=== PATIENT | male | born 1995 | race African-American/Black ===

== ENCOUNTER 2017-09-22 17:00 | Emergency (ER) | payer SELFPAY ==
[2017-09-22] MEDS ORDERED: Ondansetron ODT 4 MG TAB ONE (17:12)
[2017-09-22] MEDS ORDERED: Ondansetron HCl/PF 4 MG/2 ML Vial ONE (17:25)
[2017-09-22] MEDS ORDERED: Famotidine In NaCl 20 mg/50 ml Premix Bag ONE (17:25)
[2017-09-22 17:34] LABS: #Basophils 0.1 thou/uL (0.0-0.2); #Eosinphils 0.2 thou/uL (0.0-0.7); #Lymphocytes 2.5 thou/uL (1.20-3.40); #Monocytes 0.4 thou/uL (0.11-0.59); #Neutrophils 4.3 thou/uL (1.40-6.50); %Basophils 1.3 % (0.0-1.0); %Eosinophils 3.2 % (0.0-10.0); %Monocytes 4.7 % (0.0-10.0); %Neutrophils 56.9 % (42.0-75.0); Mean Corpuscular HGB CONC 31.6 g/dL (32.0-36.0); Mean Corpuscular Hemoglobin 25.8 pg (27.0-31.0); Mean Corpuscular Volume 81.5 fl (80.0-94.0); Mean Platelet Volume 6.8 fL (7.4-10.4); Platelet Count 239 thou/uL (130-400); RBC Distribution Width 11.9 % (11.5-14.5); Red Blood Cell (RBC) Count 5.82 mill/uL (4.70-6.10); White Blood Cell (WBC) Count 7.5 thou/uL (4.8-10.8)
[2017-09-22 17:49] LABS: ALT (SGPT) 23 U/L (8-55); AST (SGOT) 22 U/L (5-34); Albumin 4.8 g/dL (3.5-5.0); Alkaline Phosphatase 123 U/L (40-150); BUN (Urea Nitrogen) 16 mg/dL (8.9-20.6); Bilirubin, Total 0.3 mg/dL (0.2-1.2); Calc. Creatinine Clearance 0 mL/min (70-130); Calcium 10.7 mg/dL (7.8-10.44); Carbon Dioxide 27 mmol/L (22-29); Estimated GFR-MDRD 78; Globulin 4.3 g/dL (2.4-3.5); Glucose 524 mg/dL (70-105); Lipase 24 U/L (8-78); Protein, Total 9.1 g/dL (6.0-8.3)
[2017-09-22 17:51] LABS: Clarity Clear (Clear)
[2017-09-22 17:52] LABS: Leukocyte Negative (Negative); Nitrite Negative (Negative); Protein, Urine (Dipstick) Negative (Neg-Trace)
[2017-09-22 17:53] LABS: Bilirubin Negative (Negative); Blood, Urine Small (Negative); Glucose, Urine (Dipstick) >=1000 mg/dL (Negative); Urobilinogen 0.2 mg/dL (0.2-1.0)
[2017-09-22 17:54] LABS: RBC/HPF 0-3 HPF (0-3); Squamous Epithelial 0-3 HPF (0-3); WBC/HPF 0-3 HPF (0-3)
[2017-09-22 17:55] LABS: Bacteria/HPF Rare-Few HPF (None Seen)
[2017-09-22] MEDS ORDERED: Insulin Regular 300 UNITS/3 ML VIAL ONE (17:59)
[2017-09-22 18:04] LABS: Specific Gravity, Urine 1.032 (1.005-1.030)
[2017-09-22 20:14] LABS: Chloride 97 mmol/L (98-107); Potassium 4.1 mmol/L (3.5-5.1); Sodium 136 mmol/L (136-145)
[2017-09-22 20:27] LABS: Anion Gap 16 mmol/L (10-20)
== END 2017-09-22 19:30 | disposition home or self-care (01) ==
LOC: BURERS 17:00
DX: E11.65 Type 2 diabetes mellitus with hyperglycemia (principal); R11.2 Nausea with vomiting, unspecified; J45.909 Unspecified asthma, uncomplicated; F31.9 Bipolar disorder, unspecified; F41.9 Anxiety disorder, unspecified; F17.210 Nicotine dependence, cigarettes, uncomplicated; Z79.4 Long term (current) use of insulin
CPT/HCPCS: 36416; 80053; 81003; 81015; 83690; 85025; 94760; 96365; 96375; J1815; J2405; Q0162

== ENCOUNTER 2017-09-22 22:05 | Emergency (ER) | payer SELFPAY ==
[2017-09-22] MEDS ORDERED: Ondansetron HCl/PF 4 MG/2 ML Vial ONE (22:21)
[2017-09-22 22:50] LABS: Anion Gap 15 mmol/L (10-20)
[2017-09-22 22:59] LABS: BUN (Urea Nitrogen) 14 mg/dL (8.9-20.6); Calc. Creatinine Clearance 0 mL/min (70-130); Calcium 8.8 mg/dL (7.8-10.44); Carbon Dioxide 23 mmol/L (22-29); Chloride 106 mmol/L (98-107); Estimated GFR-MDRD Greater than 90; Glucose 218 mg/dL (70-105); Potassium 3.5 mmol/L (3.5-5.1); Sodium 140 mmol/L (136-145)
[2017-09-22 23:40] LABS: Clarity Clear (Clear); Glucose, Urine (Dipstick) 500 mg/dL (Negative); Leukocyte Negative (Negative); Nitrite Negative (Negative); Protein, Urine (Dipstick) Negative (Neg-Trace); pH, Urine 5.5 (5.0-9.0)
[2017-09-22 23:41] LABS: Bilirubin Negative (Negative); Blood, Urine Small (Negative); Urobilinogen 0.2 mg/dL (0.2-1.0)
[2017-09-22 23:50] LABS: Amphetamine Not Detected (NotDetected); Cocaine Metabolite Screen Not Detected (NotDetected); Methamphetamine Not Detected (NotDetected); Opiate Screen Not Detected (NotDetected); Phencyclidine (PCP) Not Detected (NotDetected); THC/Cannabinoid Screen Detected (NotDetected)
[2017-09-22 23:51] LABS: Barbiturates Screen Not Detected (NotDetected); Benzodiazepine Screen Not Detected (NotDetected); Medtox Control Line Valid? VALID (VALID); Methadone Not Detected (NotDetected); Oxycodone Screen Not Detected (NotDetected); Tricyclic Screen Not Detected (NotDetected)
== END 2017-09-23 00:24 | disposition short-term general hospital (02) ==
LOC: BURERS 22:05
DX: E11.65 Type 2 diabetes mellitus with hyperglycemia (principal); I10 Essential (primary) hypertension; J45.909 Unspecified asthma, uncomplicated; F41.9 Anxiety disorder, unspecified; F31.9 Bipolar disorder, unspecified; F90.9 Attention-deficit hyperactivity disorder, unspecified type; F12.10 Cannabis abuse, uncomplicated; Z79.4 Long term (current) use of insulin; F17.210 Nicotine dependence, cigarettes, uncomplicated
CPT/HCPCS: 80306; 96361; 96374; 96375; J2405

== ENCOUNTER 2017-09-23 11:40 | Emergency (ER) | payer SELFPAY ==
[2017-09-23] MEDS ORDERED: diphenhydrAMINE 50 MG/ML VIAL ONE (12:06)
[2017-09-23] MEDS ORDERED: Haloperidol Lactate 5 MG/ML VIAL ONE (12:06)
[2017-09-23 12:15] LABS: Hemoglobin 14.3 g/dL (14.0-18.0); Red Blood Cell (RBC) Count 5.28 mill/uL (4.70-6.10); White Blood Cell (WBC) Count 13.3 thou/uL (4.8-10.8)
[2017-09-23 12:16] LABS: #Basophils 0.1 thou/uL (0.0-0.2); #Lymphocytes 1.5 thou/uL (1.20-3.40); #Monocytes 0.3 thou/uL (0.11-0.59); #Neutrophils 11.4 thou/uL (1.40-6.50); %Basophils 0.9 % (0.0-1.0); %Lymphocytes 11.4 % (21.0-51.0); %Monocytes 2.2 % (0.0-10.0); %Neutrophils 85.6 % (42.0-75.0); Mean Corpuscular HGB CONC 33.9 g/dL (32.0-36.0); Mean Corpuscular Volume 79.7 fL (80.0-94.0); Mean Platelet Volume 7.2 fL (7.4-10.4); Platelet Count 274 thou/uL (130-400); RBC Distribution Width 11.8 % (11.5-14.5)
[2017-09-23 12:21] LABS: Base Excess -2.9 mEq/L (-2 - +2); Hemoglobin (Hb) 14.8 g/dL (13.2-17.3); pH (venous) 7.38 (7.35-7.45)
[2017-09-23 12:26] LABS: Anion Gap 20 mmol/L (10-20)
[2017-09-23 12:27] LABS: CKMB 3.3 ng/mL (0-6.6); Troponin I Less than 0.010 ng/mL (< 0.028)
[2017-09-23] MEDS ORDERED: Ketorolac Tromethamine 30 MG/ML VIAL ONE (12:34)
[2017-09-23 12:46] LABS: Sodium 139 mmol/L (136-145)
[2017-09-23 12:47] LABS: ALT (SGPT) 22 U/L (8-55); AST (SGOT) 20 U/L (5-34); Albumin 4.6 g/dL (3.5-5.0); Alkaline Phosphatase 87 U/L (40-150); BUN (Urea Nitrogen) 12 mg/dL (8.9-20.6); Bilirubin, Total 0.9 mg/dL (0.2-1.2); Calc. Creatinine Clearance 0 mL/min (70-130); Calcium 9.8 mg/dL (7.8-10.44); Carbon Dioxide 22 mmol/L (22-29); Chloride 101 mmol/L (98-107); Estimated GFR-MDRD 88; Glucose 340 mg/dL (70-105); Potassium 3.9 mmol/L (3.5-5.1); Protein, Total 8.6 g/dL (6.0-8.3)
[2017-09-23 12:48] LABS: Lipase Less than 4 U/L (8-78)
[2017-09-23] MEDS ORDERED: Insulin Regular 300 UNITS/3 ML VIAL ONE (13:23)
--- NOTE | 2017-09-23 17:47 | RAD ---
PORTABLE CHEST 09/23/17 An AP portable film at 1152 is compared with a 10/10/16 study. The heart is normal in size and the lungs are clear. No infiltrate or effusion was seen. There is no vascular congestion, edema, or pleural effusion. The trachea is midline. IMPRESSION: No acute thoracic finding. POS: HOME
== END 2017-09-23 13:44 | disposition home or self-care (01) ==
LOC: BURERS 11:40
DX: E11.65 Type 2 diabetes mellitus with hyperglycemia (principal); R11.2 Nausea with vomiting, unspecified; Z79.4 Long term (current) use of insulin; J45.909 Unspecified asthma, uncomplicated; F90.9 Attention-deficit hyperactivity disorder, unspecified type; F41.9 Anxiety disorder, unspecified; F31.9 Bipolar disorder, unspecified; F17.210 Nicotine dependence, cigarettes, uncomplicated
CPT/HCPCS: 36415; 36416; 71045; 82553; 82805; 83605; 83690; 84484; 93005; 96361; 96374; 96375; J1200; J1630; J1815; J1885